=== PATIENT | female | born 1995 ===

== ENCOUNTER 2018-09-10 16:22 | Emergency (ER) | payer OTHER ==
[2018-09-10 16:30] VITALS: TEMP 98.1
[2018-09-10] MEDS ORDERED: Sodium Chloride 0.9% 1,000 ML IV ONE (16:55)
[2018-09-10 17:10] LABS: HCG,QUALITATIVE URINE POSITIVE (NEGATIVE)
[2018-09-10 17:12] LABS: BASO % 0.5 % (0.0-2.0); EOS # 0.4 K/uL (0.0-0.7); EOS % 3.6 % (0.0-4.0); HEMOGLOBIN 13.2 g/dL (11.0-16.0); LYMPH # 1.7 K/uL (1.0-4.3); LYMPH % 16.3 % (20.0-40.0); MEAN CELL VOLUME 88.4 fL (81.0-99.0); MEAN CORPUSCULAR HEMOGLOBIN 29.7 pg (27.0-31.0); MEAN CORPUSCULAR HGB CONC 33.6 g/dL (33.0-37.0); MEAN PLATELET VOLUME 7.9 fL (7.2-11.7); MONO # 0.9 K/uL (0.0-0.8); MONO % 8.4 % (0.0-10.0); NEUT # 7.3 K/uL (1.8-7.0); NEUT % 71.2 % (50.0-75.0); RBC 4.44 Mil/uL (3.80-5.20); WHITE BLOOD COUNT 10.2 K/uL (4.8-10.8)
[2018-09-10] MEDS ORDERED: Sodium Chloride 0.9% 1,000 ML ONE (17:12)
[2018-09-10 17:13] LABS: SQUAMOUS EPITHIAL 10 /hpf (0-5); URINE BACTERIA RARE (<OCC); URINE BILIRUBIN NEGATIVE (NEGATIVE); URINE BLOOD NEGATIVE (NEGATIVE); URINE CLARITY Hazy (Clear); URINE COLOR Yellow (YELLOW); URINE GLUCOSE (UA) NORMAL (Normal); URINE LEUKOCYTE ESTERASE NEG Leu/uL (Negative); URINE PROTEIN NEGATIVE (NEGATIVE); URINE UROBILINOGEN NORMAL mg/dL (0.2-1.0)
[2018-09-10 17:41] LABS: ALB/GLOB RATIO 1.4 (1.0-2.1); ALBUMIN 4.2 g/dL (3.5-5.0); ALT/SGPT 21 U/L (9-52); AST/SGOT 21 U/L (14-36); BLOOD UREA NITROGEN 6 mg/dL (7-17); CALCIUM 8.9 mg/dl (8.6-10.4); GFR NON-AFRICAN AMERICAN > 60; LIPASE 41 U/L (23-300)
--- NOTE | 2018-09-10 17:48 | C.PDOC ---
History Of Present Illness 23 y/o female pt presents to the ER c/o epigastric abdominal pain for x5 days. Associated sx includes intermittent nausea, vomiting and diarrhea. No vaginal bleeding. Pt denies chest pain, SOB, fever and chills. Time Seen by Provider: 09/10/18 16:37 Chief Complaint (Nursing): Abdominal Pain History Per: Patient History/Exam Limitations: no limitations Onset/Duration Of Symptoms: Days (x5) Current Symptoms Are (Timing): Still Present Past Medical History Reviewed: Historical Data, Nursing Documentation, Vital Signs Vital Signs: Last Vital Signs Temp 98.1 F 09/10/18 16:27 Pulse 98 H 09/10/18 16:27 Resp 18 09/10/18 16:27 BP 117/77 09/10/18 16:27 Pulse Ox 96 09/10/18 16:27 Surgical History: Tonsillectomy Family History: States: No Known Family Hx - Social History Hx Alcohol Use: No Hx Substance Use: No - Immunization History Hx Tetanus Toxoid Vaccination: Yes Hx Influenza Vaccination: No Hx Pneumococcal Vaccination: No Review Of Systems Except As Marked, All Systems Reviewed And Found Negative. Gastrointestinal: Positive for: Vomiting, Abdominal Pain, Diarrhea Genitourinary: Positive for: Other (vaginal spotting) Physical Exam - Physical Exam Appears: Well, Non-toxic, No Acute Distress Skin: Normal Color, Warm, Dry Head: Atraumatic, Normacephalic Chest: Symmetrical Cardiovascular: Rhythm Regular, No Murmur Respiratory: Normal Breath Sounds, No Rales, No Rhonchi, No Wheezing Gastrointestinal/Abdominal: Soft, Tenderness (epigastric ), No Distention, No Guarding, No Rebound Extremity: Bilateral: Atraumatic, Normal Color And Temperature, Normal ROM Neurological/Psych: Oriented x3, Normal Speech ED Course And Treatment - Laboratory Results Result Diagrams: 09/10/18 17:09 09/10/18 17:09 O2 Sat by Pulse Oximetry: 96 (RA) Pulse Ox Interpretation: Normal Medical Decision Making Medical Decision Making: Impression: Abdominal pain r/o ectopic Plans: -- blood bank -- chem labs -- blood work -- obstrive series -- pepcid -- IV fluids -- Tylenol -- Zofran -- HCG -- UA -- OB transvaginal US Urine Preg results: (+) obstruction series canceled ultrasound ordered. chest xray performed by radiology and request for study by radiology. I canceled all xray imaging and toradol. case s/o to Dr. Dumas at 1900 Disposition Discussed With : Murphy Dumas DO - Disposition Disposition Time: 19:00 Condition: STABLE Forms: [facility] (Cit[place]) - Clinical Impression Clinical Impression: Abdominal pain, - Scribe Statement The provider has reviewed the documentation as recorded by the Ge Borrego Do Provider Attestation: All medical record entries made by the Jamalibdorinda were at my direction and personally dictated by me. I have reviewed the chart and agree that the record accurately reflects my personal performance of the history, physical exam, medical decision making, and the department course for this patient. I have also personally directed, reviewed, and agree with the discharge instructions and disposition. Physician Patient Turnover Patient Signed Over To: Murphy Dumas DO Handoff Comments: pending ultrasound, labs, reevaluation and disposition.
[2018-09-10 21:14] VITALS: BP 110/76; PULSE 73; RESP 16; O2SAT 100
--- NOTE | 2018-09-11 09:41 | US ---
Date of service: 09/10/2018 PROCEDURE: OB Pelvic Ultrasound HISTORY: COMPARISON: None available. FINDINGS: UTERUS: Single Live intrauterine gestation. Yolk sac is visualized. CRL measures 0.49 cm equivalent to 6 weeks and 1 day of gestational age. Gestational sac diameter measures 1.94 cm equivalent to 6 weeks and 2 days of gestational age. age (Ultrasound estimated): 6 weeks and 2 days of gestational age. Date of delivery (Ultrasound estimated) : 05/04/2019 Heart rate: 127 bpm. Jovanna-gestational hemorrhage: None. Measures 9.4 x 4.9 x 3.2 cm. Normal in size and appearance. No fibroid or other mass lesion seen. CERVIX: Long and closed. No cervical abnormality seen. RIGHT OVARY: Measures 3.2 x 2.5 x 2.7 cm. No mass. Normal flow. There is a 1.6 x 1.2 x 1.7 cm corpus luteum cyst. LEFT OVARY: Measures 2.9 x 1.8 x 2.5 cm. No mass. Normal flow. There is a 1.4 x 1.2 x 1.2 cm simple cyst. FREE FLUID: None. OTHER FINDINGS: None. IMPRESSION: Single live intrauterine gestation with mean gestational age of 6 weeks and 2 days. The estimated date of delivery by ultrasound is 05/04/2019. There is a discrepancy with the clinical dates. Clinical follow-up is advised. A preliminary report was provided by [email or web address].
--- NOTE | 2018-09-11 11:17 | RAD ---
HISTORY: ABD PAIN COMPARISON: No prior. TECHNIQUE: Chest, one view. FINDINGS: LUNGS: No focal consolidation. Please note that chest x-ray has limited sensitivity for the detection of pulmonary masses. PLEURA: No significant pleural effusion identified. No definite pneumothorax . CARDIOVASCULAR: The cardiomediastinal silhouette appears within normal limits of size. No significant atherosclerotic calcification present. OSSEOUS STRUCTURES: No acute osseous abnormality identified. VISUALIZED UPPER ABDOMEN: Unremarkable. OTHER FINDINGS: None. IMPRESSION: No focal consolidation.
== END 2018-09-10 21:14 | disposition home or self-care (01) ==
LOC: C.ER 16:22
DX: O26.891 Other specified pregnancy related conditions, first trimester (principal); Z3A.01 Less than 8 weeks gestation of pregnancy
CPT/HCPCS: 71045; 76805; 76817; 80053; 81001; 83690; 84702; 84703; 85025; 86850; 86900; 96374; 96375; 99285; J1885; J2405; J7030

== ENCOUNTER 2018-10-07 13:52 | Outpatient (CLI) | payer OTHER | END 2018-10-07 13:53 | disposition home or self-care (01) | LOC: C.LAB 13:52 | DX: N91.2 Amenorrhea, unspecified (principal) ==

== ENCOUNTER 2018-12-22 16:32 | Outpatient (CLI) | payer OTHER | END 2018-12-22 16:33 | disposition home or self-care (01) | LOC: C.LAB 16:32 ==

== ENCOUNTER 2019-01-29 10:44 | Outpatient (CLI) | payer OTHER | END 2019-01-29 10:45 | disposition home or self-care (01) | LOC: C.LAB 10:44 | DX: Z34.82 Encounter for supervision of other normal pregnancy, second trimester (principal) ==

== ENCOUNTER 2019-01-29 10:48 | Outpatient (CLI) | payer OTHER | END 2019-01-29 10:49 | disposition home or self-care (01) | LOC: C.LAB 10:48 | DX: E05.90 Thyrotoxicosis, unspecified without thyrotoxic crisis or storm (principal); O99.282 Endocrine, nutritional and metabolic diseases complicating pregnancy, second trimester ==

== ENCOUNTER 2019-02-10 10:43 | Outpatient (CLI) | payer OTHER | END 2019-02-10 10:44 | disposition home or self-care (01) | LOC: C.LAB 10:43 | DX: R73.09 Other abnormal glucose (principal) ==

== ENCOUNTER 2019-02-10 14:21 | Outpatient (CLI) | payer OTHER | END 2019-02-10 14:22 | disposition home or self-care (01) | LOC: C.USIC 14:21 | DX: E05.90 Thyrotoxicosis, unspecified without thyrotoxic crisis or storm (principal) ==